=== PATIENT | male | born 2000 | race American Indian/Alaskan Native ===

== ENCOUNTER 2023-02-14 21:11 | Emergency (ER) | payer OTHER, BC ==
[2023-02-14] MEDS ORDERED: Acetaminophen 500 MG Tab PO ONE (21:39)
[2023-02-14] MEDS ORDERED: Ibuprofen 600 MG Tab PO ONE (21:39)
[2023-02-14] MEDS ORDERED: Diazepam 2 MG Tab PO ONE (21:39)
== END 2023-02-15 00:30 | disposition home or self-care (01) ==
LOC: MW.ED 21:11
DX: S13.4XXA Sprain of ligaments of cervical spine, initial encounter (principal); J45.909 Unspecified asthma, uncomplicated; Z88.1 Allergy status to other antibiotic agents; Z91.013 Allergy to seafood; V49.10XA Passenger injured in collision with unspecified motor vehicles in nontraffic accident, initial encounter; Y92.410 Unspecified street and highway as the place of occurrence of the external cause
CPT/HCPCS: 71045; 72125; 99285; A9270; 99283

== ENCOUNTER 2023-02-18 13:31 | Emergency (ER) | payer OTHER, BC | END 2023-02-18 15:12 | disposition home or self-care (01) | LOC: MW.ED 13:31 | DX: S06.0X0A Concussion without loss of consciousness, initial encounter (principal); J45.909 Unspecified asthma, uncomplicated; Z91.013 Allergy to seafood; Z88.1 Allergy status to other antibiotic agents; V89.2XXA Person injured in unspecified motor-vehicle accident, traffic, initial encounter; Y92.410 Unspecified street and highway as the place of occurrence of the external cause | CPT/HCPCS: 99283 ==